=== PATIENT | female | born 1990 | race Caucasian/White ===

== ENCOUNTER 2021-01-05 18:19 | Inpatient (IN) ==
[~2021-01-05 18:19] MED LIST: ETOMIDATE 2 MG/ML 20 ML VIAL IV ONE; ROCURONIUM BROMIDE 10 MG/ML 5 ML VIAL IV ONE; SUCCINYLCHOLINE CHLORIDE 20 MG/ML 10 ML VIAL IV ONE
[2021-01-05] MEDS ORDERED: cefTRIAXone SODIUM 2,000 MG/70 ML BAG IV STA ×2 (18:37→18:41)
[2021-01-05] MEDS ORDERED: dexAMETHasone**PF** 10 MG/ML VIAL IV ONE ×2 (18:37→18:41)
[2021-01-05] MEDS ORDERED: ACETAMINOPHEN 1,000 MG/100 ML VIAL IV STA (18:37)
[2021-01-05] MEDS ORDERED: diphenhydrAMINE 50 MG/ML VIAL IV STA ×2 (18:38→18:41)
[2021-01-05] MEDS ORDERED: MAGNESIUM SULFATE / D5W 1 GM/100 ML BAG IV STA ×2 (18:38→18:42)
[2021-01-05] MEDS ORDERED: DROPERIDOL 5 MG/2 ML VIAL IV STA ×2 (18:38→18:41)
[2021-01-05] MEDS ORDERED: SODIUM CHLORIDE 0.9% 1000ML 1,000 ML IV ONE (18:41)
[2021-01-05] MEDS ORDERED: KETOROLAC TROMETHAMINE 15 MG/ML VIAL IV ONE (18:41)
[2021-01-05] MEDS ORDERED: VANCOMYCIN HCL 2,000 MG in SODIUM CHLORIDE 0.9% 500 ML IV ONE (18:50)
[2021-01-05] MEDS ORDERED: VANCOMYCIN CONSULT ACTIVE PRN (18:50)
[2021-01-05 19:59] LABS: Basophils # (auto) 0.06 K/uL (0-0.2); Basophils % (auto) 0.8 %; Eosinophils % (auto) 1.3 %; Hematocrit (blood only) 37.4 % (37-47); Hemoglobin 12.9 g/dL (12.0-16.0); Immature Granulocytes # (auto) 0.01 K/uL (0.00-0.02); Immature Granulocytes % (auto) 0.1 %; Lymphocytes # (auto) 1.54 K/uL (1.2-3.4); Lymphocytes % (auto) 19.9 %; Mean Corpuscular Hemoglobin 31.9 pg (25-34); Mean Corpuscular Hgb Conc 34.5 g/dL (32-36); Mean Corpuscular Volume 92.3 fL (80-100); Mean Platelet Volume 10.3 fL (7.4-10.4); Monocytes # (auto) 0.61 K/uL (0.11-0.59); Monocytes % (auto) 7.9 %; Platelet Count 247 K/uL (130-400); RDW Coefficient of Variation 12.3 % (11.5-14.5); RDW Standard Deviation 42.1 fL (36.4-46.3); Red Blood Count 4.05 M/uL (4.2-5.4); White Blood Count 7.72 K/uL (4.8-10.8)
[2021-01-05 20:12] LABS: BUN Creatinine Ratio 11.4 (10-20); Creatinine Clr Calc Pharmacy 136.2 ml/min; Est GFR (African American) 137.6 ml/min; Est GFR (Non-African American) 118.7 ml/min; Potassium 3.2 mmol/L (3.5-5.1)
[2021-01-05 20:15] LABS: Pregnancy Test, Serum Negative (Negative)
[2021-01-05] MEDS ORDERED: POTASSIUM CHLORIDE CRTAB 20 MEQ TABCR PO STA (20:19)
[2021-01-05 20:27] LABS: Bilirubin,Total 0.3 mg/dl (0.2-1)
[2021-01-05] MEDS ORDERED: ACETAMINOPHEN 325 MG TAB PO PRN (23:33)
[2021-01-05] MEDS ORDERED: PROMETHAZINE HCL 12.5 MG in SODIUM CHLORIDE 0.9% 50 ML IV PRN (23:33)
[2021-01-05] MEDS ORDERED: POTASSIUM CHLORIDE 40 MEQ in LACTATED RINGER'S 1,000 ML IV ONE (23:33)
[2021-01-06] MEDS: POTASSIUM CHLORIDE / WTR 10 MEQ/100 ML PLCT IV SCH ×2 (00:49→02:45)
[2021-01-06] MEDS: levETIRAcetam 500 MG TAB PO SCH ×3 (00:50→20:00)
[2021-01-06] MEDS: KETOROLAC TROMETHAMINE 15 MG/ML VIAL IV PRN ×3 (00:50→16:20)
--- NOTE | 2021-01-06 01:07 | History & Physical Report ---
Date of Service January 05, 2021 (late entry) Assessment & Plan (1) Cerebrospinal fluid abnormality: Plan: Gram-positive cocci on CSF (01/04) CSF analysis atypical for bacterial meningitis. Atypical presentation for possible meningitis. Patient currently not septic nor toxic. new onset seizures on Keppra HCV yet to be treated as per patient mood disorder, at baseline chronic pain on Subutex Hypokalemia ongoing tobacco abuse GMF CS, follow final CSF CS Vancomycin, Ceftriaxone ID consult once CSF CS results finalized. Outpatient GI referral for HCV. Patient interested in treatment Replace potassium Nicotine patch as needed DVT prophylaxis. Lovenox subcu Full code Text document was generated using [employer] voice recognition software. It may contain grammatical or spelling errors. Kindly contact undersigned for clarification of any documentation item in question. Admission and Anticipated Discharge Date Admission Date: January 05, 2021 History of Present Illness Chief Complaint: Abnormal lab work Primary Care Provider: [facility] Patient however would like to go back to seeing Dr. Katt Eli of [facility]. History obtained from patient and records. Medical history significant for new onset seizures, HCV, mood disorder, chronic pain on Subutex, ongoing tobacco abuse. 2 days ago patient had 3 episodes of generalized tonic-clonic seizures at home. No prior history of seizures as per patient. No known sick contacts. No cough symptoms, no rashes. No recollection of recent head trauma. Denies recreational drug use. Patient brought to the [facility] ER. Diagnostic LP recommended by neurologist on-call. Patient subsequently intubated because of increased agitation. Unremarkable preliminary CSF findings. Patient however given empiric doses of vancomycin, ceftriaxone and acyclovir for ADMINISTRATIVE SERVICES DIRECTOR infection. Behavioral Specialist recommended transfer to tertiary care center with continuous EEG monitoring capability. Patient transferred to [facility] as per patient family request. Patient sister employed at [facility] ICU as a nurse. Patient remembers waking up at [facility] and subsequent extubation. Brain MRI normal as per patient. Patient discharged home yesterday on Keppra course for seizure prophylaxis. Achy retro-orbital headache complaints since hospital discharge. No fever, no chills, no chest pain, no S OB. Gram-positive cocci noted today on CSF gram stain done post LP at [facility] 01/04. Result communicated to [facility]. Information relayed to patient sister who advised patient to go to the hospital. Patient given Vancomycin, Ceftriaxone and Decadron at the ER for meningitis. Medical History as above Surgical History : Dental surgery, femur surgery Family History : Heart disease, hypertension Personal/Social history : Few cigarettes a day, no EtOH intake, homemaker Allergies Allergy/AdvReac Type Severity Reaction Status Date / Time loratadine Allergy Unknown hives Verified 01/05/21 18:28 Home Medications Medication Instructions Recorded Confirmed Type buprenorphine 8 mg-naloxone 2 mg 1 tab SUBLINGUAL QAM 01/03/21 01/05/21 History sublingual tablet venlafaxine 150 mg 150 mg PO QAM 01/03/21 01/05/21 History capsule,extended release 24 hr (Effexor XR) levetiracetam 500 mg tablet 500 mg PO BID 01/05/21 01/05/21 History Past Med/Surg History Medical History Hepatitis C carrier (11/23/12) Social History Smoking Status: Current every day smoker Hx Alcohol Use: No Hx Substance Use: Yes Last Used Substance: Days (ago) Last Used Substance Other:: 15 yrs ago on suboxone now Preferred Language: Slovak Communication Ability: Effective Screw Machine Setter Required: No Beliefs That Will Affect Care: None Current Living Situation: Spouse Current Living Situation Comment: Lives with spouse and three boys Other Information That Helps Us Care for You: No Feels Safe at Home: Yes Safety Concerns: Feels Safe At This Time Assistive Devices: None Review of Systems Review of Systems: As per HPI, all 10 systems reviewed, all other ROS negative Physical Exam Physical Exam: GENERAL: Comfortable, pleasant, no respiratory distress SKIN: Normal color, multiple skin tattoos, warm HEENT: [place] palpebral conjunctivae, no ptosis, dry buccal mucosa NECK : Supple, no tenderness CHEST : CTA, no tenderness HEART : RRR, no obvious murmurs ABDOMEN: Some distention, nontender EXTREMITIES : No LE swelling/tenderness, no other conspicuous deformities noted NEUROLOGIC : Coherent, no facial asymmetry, no other gross focality Results & Data Results & Data ([facility]) Vital Signs (Past 12 Hours) Vital Signs Temp Pulse Pulse Resp BP BP Pulse Ox 01/05/21 23:36 37.4 C 96 H 18 144/94 H 100 01/05/21 22:53 87 16 132/85 100 01/05/21 21:30 75 16 147/68 H 96 01/05/21 20:35 75 16 132/92 95 01/05/21 19:37 77 18 132/92 99 01/05/21 18:22 37.2 C 101 H 20 141/92 H 99 Laboratory Results Laboratory Results WBC 7.72 K/uL (4.8-10.8) 01/05/21 19:18 RBC 4.05 M/uL (4.2-5.4) L 01/05/21 19:18 Hgb 12.9 g/dL (12.0-16.0) 01/05/21 19:18 Hct 37.4 % (37-47) 01/05/21 19:18 MCV 92.3 fL (80-100) 01/05/21 19:18 MCH 31.9 pg (25-34) 01/05/21 19:18 MCHC 34.5 g/dL (32-36) 01/05/21 19:18 RDW Std Deviation 42.1 fL (36.4-46.3) 01/05/21 19:18 RDW Coeff of Marilyn 12.3 % (11.5-14.5) 01/05/21 19:18 Plt Count 247 K/uL (130-400) 01/05/21 19:18 MPV 10.3 fL (7.4-10.4) 01/05/21 19:18 Immature Gran % (Auto) 0.1 % 01/05/21 19:18 Neut % (Auto) 70.0 % 01/05/21 19:18 Lymph % (Auto) 19.9 % 01/05/21 19:18 [place] % (Auto) 7.9 % 01/05/21 19:18 Eos % (Auto) 1.3 % 01/05/21 19:18 Baso % (Auto) 0.8 % 01/05/21 19:18 Neut # (Auto) 5.40 K/uL (1.4-6.5) 01/05/21 19:18 Lymph # (Auto) 1.54 K/uL (1.2-3.4) 01/05/21 19:18 [place] # (Auto) 0.61 K/uL (0.11-0.59) H 01/05/21 19:18 Eos # (Auto) 0.10 K/uL (0-0.5) 01/05/21 19:18 Baso # (Auto) 0.06 K/uL (0-0.2) 01/05/21 19:18 Immature Gran # (Auto) 0.01 K/uL (0.00-0.02) 01/05/21 19:18 Sodium 140 mmol/L (136-145) 01/05/21 19:18 Potassium 3.2 mmol/L (3.5-5.1) L 01/05/21 19:18 Chloride 105 mmol/L (98-107) 01/05/21 19:18 Carbon Dioxide 28 mmol/L (21-32) 01/05/21 19:18 Anion Gap 7.0 (3-11) 01/05/21 19:18 BUN 7 mg/dl (7-18) 01/05/21 19:18 Creatinine 0.63 mg/dl (0.6-1.2) 01/05/21 19:18 Est Cr Clr Drug Dosing 136.2 ml/min 01/05/21 19:18 Est GFR ( Amer) 137.6 ml/min 01/05/21 19:18 Est GFR (Non-Af Amer) 118.7 ml/min 01/05/21 19:18 BUN/Creatinine Ratio 11.4 (10-20) 01/05/21 19:18 Glucose 90 mg/dl (70-99) 01/05/21 19:18 Lactate 2.0 mmol/L (0.4-2.0) 01/05/21 21:12 Calcium 9.0 mg/dl (8.5-10.1) 01/05/21 19:18 Magnesium 2.0 mg/dl (1.8-2.4) 01/05/21 21:07 Total Bilirubin 0.3 mg/dl (0.2-1) 01/05/21 19:18 AST 71 U/L (15-37) H 01/05/21 19:18 ALT 70 U/L (12-78) 01/05/21 19:18 Alkaline Phosphatase 79 U/L (45-117) 01/05/21 19:18 Total Protein 8.0 gm/dl (6.4-8.2) 01/05/21 19:18 Albumin 4.0 gm/dl (3.4-5.0) 01/05/21 19:18 Globulin 4.0 gm/dl (2.5-4.0) 01/05/21 19:18 Albumin/Globulin Ratio 1.0 (0.9-2) 01/05/21 19:18 Lipase 137 U/L (73-393) 01/05/21 19:18 HCG, Qual Negative (Negative) 01/05/21 19:18 COVID-19 Eval Order Covid19 at [facility] 01/05/21 19:18 SARS-CoV-2 (PCR) NEGATIVE (Negative) 01/05/21 19:18 Code Status & VTE Plan VTE Prophylaxis Plan VTE Prophylaxis will be ordered: Yes
[2021-01-06] MEDS: cefTRIAXone SODIUM 2,000 MG in DEXTROSE 5% 50 ML IV SCH ×2 (05:59→19:17)
[2021-01-06 06:39] LABS: Appearance Urine Clear (Clear); Bilirubin Urine Negative (Negative); Blood Urine Negative (Negative); Color Urine Yellow; Glucose Urine UA 2+ (Negative); Ketones Urine Negative (Negative); Leukocyte Esterase Urine Negative (Negative); Nitrite Urine Negative (Negative); Protein Urine Negative (Negative); Specific Gravity Urine 1.027 (1.000-1.030); Urobilinogen Urine Negative (Negative); pH Urine 7.5 (4.5-7.5)
[2021-01-06 07:00] LABS: Amphetamines+Metham, Urine Neg (Neg); Barbiturates, Urine Neg (Neg); Benzodiazepine, Urine Neg (Neg); Cocaine, Urine Neg (Neg); MDMA (Ecstacy), Urine Neg (Neg); Methadone, Urine Neg (Neg); Opiate, Urine Neg (Neg); Phencyclidine, Urine Neg (Neg)
[2021-01-06 07:05] LABS: Basophils # (auto) 0.02 K/uL (0-0.2); Basophils % (auto) 0.2 %; Hemoglobin 12.1 g/dL (12.0-16.0); Immature Granulocytes # (auto) 0.02 K/uL (0.00-0.02); Immature Granulocytes % (auto) 0.2 %; Lymphocytes # (auto) 1.01 K/uL (1.2-3.4); Lymphocytes % (auto) 10.1 %; Mean Corpuscular Hemoglobin 31.8 pg (25-34); Mean Corpuscular Hgb Conc 34.6 g/dL (32-36); Mean Corpuscular Volume 91.9 fL (80-100); Monocytes # (auto) 0.85 K/uL (0.11-0.59); Monocytes % (auto) 8.5 %; Neutrophils # (auto) 8.09 K/uL (1.4-6.5); Platelet Count 219 K/uL (130-400); RDW Coefficient of Variation 12.4 % (11.5-14.5); RDW Standard Deviation 41.9 fL (36.4-46.3); Red Blood Count 3.81 M/uL (4.2-5.4); White Blood Count 9.99 K/uL (4.8-10.8)
[2021-01-06 07:47] LABS: BUN Creatinine Ratio 16.9 (10-20); Calcium 8.9 mg/dl (8.5-10.1); Creatinine Clr Calc Pharmacy 172.8 ml/min; Est GFR (African American) 148.4 ml/min; Est GFR (Non-African American) 128.1 ml/min; Potassium 4.1 mmol/L (3.5-5.1)
[2021-01-06] MEDS: VENLAFAXINE HCL XR 150 MG CAPXR PO SCH (08:40)
[2021-01-06] MEDS: VANCOMYCIN HCL 1,500 MG in SODIUM CHLORIDE 0.9% 500 ML IV SCH ×2 (08:40→20:00)
[2021-01-06] MEDS: ENOXAPARIN INJ 30 MG/0.3 ML SYR SQ SCH (08:41)
[2021-01-06] MEDS: BUPRENORPHINE/NALOXONE 8/2 MG TAB SL SCH (08:50)
--- NOTE | 2021-01-06 11:12 | Pharmacy Report ---
Pharmacy Vanc AUC Short Note - Date of Service January 06, 2021 - Assessment & Plan Assessment 30 year old F receiving Vancomycin and Ceftriaxone for treatment of meningitis * PMHx significant for smoking and hep c carrier * Recently had new onset seizures and was treated at hospital but now CSF cultures are growing GPCs * [facility] is consulted. Await their input. * Vancomycin and Ceftriaxone remain appropriate. Plan Vancomycin * AUC/JADYN is the preferred PK/PD target for vancomycin * AUC guided dosing is effective and associated with decreased risk of nephrotoxicity compared to traditional trough targets * Loading dose: 2000 mg (26 mg/kg) * Maintenance dose: 1500 mg (20 mg/kg) IV every 8 hours * Goal trough level: ~20 mcg/mL * Ordered a trough level for 01/07/21 prior to the 0800 dose Ceftriaxone - not a pharmacy consult * 2000 mg IV every 12 hours - appropriate for meningitis Pharmacy will continue to follow and will adjust dose/frequency as necessary. Thank you.
[2021-01-06] MEDS: IBUPROFEN 200 MG TAB PO PRN (20:04)
[2021-01-07] MEDS: VANCOMYCIN HCL 1,500 MG in SODIUM CHLORIDE 0.9% 500 ML IV SCH ×2 (02:54→12:22)
[2021-01-07] MEDS: cefTRIAXone SODIUM 2,000 MG in DEXTROSE 5% 50 ML IV SCH (05:51)
[2021-01-07] MEDS: IBUPROFEN 200 MG TAB PO PRN ×2 (06:17→16:11)
--- NOTE | 2021-01-07 06:53 | Hospitalist Progress Note ---
Date of Service January 06, 2021 Assessment & Plan (1) Cerebrospinal fluid abnormality: Plan: Gram-positive cocci on CSF (01/04) CSF analysis atypical for bacterial meningitis. Atypical presentation for possible meningitis. Patient currently not septic nor toxic. new onset seizures on Keppra HCV yet to be treated as per patient mood disorder, at baseline chronic pain on Subutex Hypokalemia ongoing tobacco abuse CS, follow final CSF CS Vancomycin, Ceftriaxone, MRSA Swab, d/w ID ID consult once CSF CS results finalized. Outpatient GI referral for HCV. Patient interested in treatment Replace potassium Nicotine patch as needed DVT prophylaxis. Lovenox subcu Full code Labs reviewed ROS-No Headache, No Visual Changes, No Nausea, No Vomiting, No Fever, No Chills, No Neck Pain or Stiffness, No Chest Pain, No Palpitations, No SOB, No RIGGINS, No Cough, No Sputum, No Wheezing, No Abdominal Pain, No Diarrhea, No Hematemesis, No Hemoptysis, No Unexpected Weight Loss, No Flank pain, No Melena, No Hematochezia, No Frequency, No Urgency, No Burning, No Hematuria, No Rashes, No Diaphoresis. Appetite is Normal Physical Exam Gen-AAO x 3, NAD, Afebrile Head-NCAT, EOMI, PERRLA, Anicteric Sclera, No Posterior Pharyngeal Erythema Neck-Supple, No JVD, No Thyromegaly, No Masses, No LAD, No Bruits Lungs-Clear to Auscultation Bilaterally, No Rales, No Rhonchi, No Wheezing, No Crepitus Chest-No S4, +S1, +S2, No S3, No Murmurs, No Rubs, No Gallops, No Ectopy Abdomen-Soft, Bowel Sounds Present, Non Tender, Non Distended, No Hepatomegaly, No Splenomegaly, No Palpable Masses, No Rebound, No Rigidity, No Guarding Musculoskeletal-Full Range of Motion Bilaterally, No CVAT Extremities-No Cyanosis, No Clubbing, No Edema Nuero-Cranial Nerves II-XII grossly intact, Motor WNL, DTRs WNL, Strength WNL, Non Focal Psych-Normal Mood Admission and Anticipated Discharge Date Admission Date: January 05, 2021 Results & Data Results & Data ([facility]) Vital Signs (Past 12 Hours) Vital Signs Temp Pulse Resp BP Pulse Ox 08/16/21 22:21 36.8 C 72 16 135/85 97
[2021-01-07] MEDS ORDERED: VANCOMYCIN TROUGH ONE ×2 (07:30→11:30)
[2021-01-07 08:32] LABS: Creatinine Clr Calc Pharmacy 151.6 ml/min; Est GFR (African American) 142.2 ml/min; Est GFR (Non-African American) 122.7 ml/min
[2021-01-07] MEDS: levETIRAcetam 500 MG TAB PO SCH ×2 (09:07→19:39)
[2021-01-07] MEDS: BUPRENORPHINE/NALOXONE 8/2 MG TAB SL SCH (09:07)
[2021-01-07] MEDS: VENLAFAXINE HCL XR 150 MG CAPXR PO SCH (09:07)
[2021-01-07] MEDS: ENOXAPARIN INJ 30 MG/0.3 ML SYR SQ SCH (09:07)
[2021-01-07] MEDS: KETOROLAC TROMETHAMINE 15 MG/ML VIAL IV PRN ×2 (09:08→19:31)
--- NOTE | 2021-01-07 10:35 | Hospitalist Progress Note ---
Date of Service January 07, 2021 Assessment & Plan (1) Bacterial meningitis: (2) Cerebrospinal fluid abnormality: Plan: Gram-positive cocci on CSF (01/04) CSF analysis atypical for bacterial meningitis. Suspected Bacterial Meningitis. Patient currently not septic nor toxic. new onset seizures on Keppra HCV yet to be treated as per patient mood disorder, at baseline chronic pain on Subutex Hypokalemia ongoing tobacco abuse CS, follow final CSF CS Vancomycin, Ceftriaxone, MRSA Swab, d/w ID ID consult pending, awaiting final Cx Outpatient GI referral for HCV. Patient interested in treatment Replace potassium Nicotine patch as needed DVT prophylaxis. Lovenox subcu Full code Labs reviewed ROS-Pos Headache, No Visual Changes, No Nausea, No Vomiting, No Fever, No Chills, No Neck Pain or Stiffness, No Chest Pain, No Palpitations, No SOB, No RIGGINS, No Cough, No Sputum, No Wheezing, No Abdominal Pain, No Diarrhea, No Hematemesis, No Hemoptysis, No Unexpected Weight Loss, No Flank pain, No Melena, No Hematochezia, No Frequency, No Urgency, No Burning, No Hematuria, No Rashes, No Diaphoresis. Appetite is Normal Physical Exam Gen-AAO x 3, NAD, Afebrile Head-NCAT, EOMI, PERRLA, Anicteric Sclera, No Posterior Pharyngeal Erythema Neck-Supple, No JVD, No Thyromegaly, No Masses, No LAD, No Bruits Lungs-Clear to Auscultation Bilaterally, No Rales, No Rhonchi, No Wheezing, No Crepitus Chest-No S4, +S1, +S2, No S3, No Murmurs, No Rubs, No Gallops, No Ectopy Abdomen-Soft, Bowel Sounds Present, Non Tender, Non Distended, No Hepatomegaly, No Splenomegaly, No Palpable Masses, No Rebound, No Rigidity, No Guarding Musculoskeletal-Full Range of Motion Bilaterally, No CVAT Extremities-No Cyanosis, No Clubbing, No Edema Nuero-Cranial Nerves II-XII grossly intact, Motor WNL, DTRs WNL, Strength WNL, Non Focal Psych-Normal Mood Admission and Anticipated Discharge Date Admission Date: January 05, 2021 Results & Data Results & Data ([facility]) Vital Signs (Past 12 Hours) Vital Signs Temp Pulse Resp BP Pulse Ox 01/07/21 07:47 36.6 C 75 18 141/94 H 98
--- NOTE | 2021-01-07 14:16 | Pharmacy Report ---
Pharmacy Abx Dose Short Note - Date of Service January 07, 2021 - Assessment & Plan Assessment 30 year old F receiving vancomycin and rocephin for possible meningitis Day # 3 of antimicrobial therapy. Plan Vancomycin * Trough level came back at ~14.3 mg/ml (goal 15-20 mcg/ml for meningitis). Previous doses of vancomycin delayed due to line issues/access. First dose of maintenance dose was 7 hrs late due to IV access. Anticipate level will increase with dosing. * Plan to continue same vancomycin dosing for now and recheck level tomorrow AM * Patient's CSF culture with staph epidermidis. Prelim blood cultures with no growth Pharmacy will continue to follow and will adjust dose/frequency as necessary. Thank you.
[2021-01-07] MEDS: NAFCILLIN SODIUM 2,000 MG in DEXTROSE 5% 100 ML IV SCH ×2 (16:03→19:39)
[2021-01-08] MEDS: NAFCILLIN SODIUM 2,000 MG in DEXTROSE 5% 100 ML IV SCH ×4 (00:23→12:03)
[2021-01-08] MEDS: KETOROLAC TROMETHAMINE 15 MG/ML VIAL IV PRN ×2 (05:12→11:17)
[2021-01-08 06:26] LABS: Basophils # (auto) 0.04 K/uL (0-0.2); Basophils % (auto) 0.7 %; Eosinophils # (auto) 0.16 K/uL (0-0.5); Eosinophils % (auto) 2.9 %; Hematocrit (blood only) 34.7 % (37-47); Hemoglobin 11.9 g/dL (12.0-16.0); Immature Granulocytes # (auto) 0.02 K/uL (0.00-0.02); Immature Granulocytes % (auto) 0.4 %; Lymphocytes # (auto) 1.51 K/uL (1.2-3.4); Lymphocytes % (auto) 27.4 %; Mean Corpuscular Hgb Conc 34.3 g/dL (32-36); Mean Corpuscular Volume 93.3 fL (80-100); Monocytes # (auto) 0.56 K/uL (0.11-0.59); Monocytes % (auto) 10.2 %; Neutrophils # (auto) 3.22 K/uL (1.4-6.5); Neutrophils % (auto) 58.4 %; Platelet Count 280 K/uL (130-400); RDW Coefficient of Variation 12.5 % (11.5-14.5); RDW Standard Deviation 42.6 fL (36.4-46.3); Red Blood Count 3.72 M/uL (4.2-5.4); White Blood Count 5.51 K/uL (4.8-10.8)
[2021-01-08 06:49] LABS: BUN Creatinine Ratio 10.5 (10-20); Calcium 8.6 mg/dl (8.5-10.1); Creatinine Clr Calc Pharmacy 139.3 ml/min; Est GFR (African American) 138.3 ml/min; Est GFR (Non-African American) 119.3 ml/min
[2021-01-08] MEDS: ENOXAPARIN INJ 30 MG/0.3 ML SYR SQ SCH (08:48)
[2021-01-08 08:51] LABS: Marijuana Quant, GCMS Urine 1165 ng/mL (<5)
[2021-01-08] MEDS: VENLAFAXINE HCL XR 150 MG CAPXR PO SCH (09:07)
[2021-01-08] MEDS: IBUPROFEN 200 MG TAB PO PRN (09:07)
[2021-01-08] MEDS: BUPRENORPHINE/NALOXONE 8/2 MG TAB SL SCH (09:08)
[2021-01-08] MEDS: levETIRAcetam 500 MG TAB PO SCH ×2 (09:30→16:41)
--- NOTE | 2021-01-08 14:49 | Hospitalist Progress Note ---
Date of Service January 08, 2021 Assessment & Plan (1) Bacterial meningitis: (2) Cerebrospinal fluid abnormality: Plan: Patient initially presented to [facility] ED on January 03, with several episodes of seizure. Required Ativan, and Keppra, then was intubated and after further discussion with ICU physician and neurologist, patient was transferred to [facility] for 24-hour EEG monitoring. Patient was discharged from [facility] shortly after that however CSF culture came positive for gram-positive cocci here at [facility]. Patient was contacted and also physician at [facility] was contacted. Patient then presented on January 06 for admission at [facility]. She was discharged from [facility] on Keppra. Gram-positive cocci on CSF (01/04)-Staph epidermidis CSF analysis atypical for bacterial meningitis. Suspected Bacterial Meningitis. Blood culture negative from January 05 Patient currently not septic nor toxic. Vancomycin, Ceftriaxone, MRSA Swab Then switched to nafcillin on January 07 ID consulted CSF - WBC 2, RBC 0, Glucose 66, protein 34 No WBC seen. No organisms seen, grew rare staph epidermidis meningitis ruled out Staph epi in her CSF does not match the profile, so must be assessed as a contam inant and not part etiology of infection Stop antibiotics Medical records not available currently to me from [facility], however records requested and will be forwarded to primary care physician when available Patient reports she has a prescription for overnight EEG, (however no referral to see a neurologist?) Atul also contacted about seizure and no driving for 6 months New onset seizures now on Keppra (after DC from [facility]) Patient recently increased dose for venlafaxine, which can increase seizure threshold Recommend to lower venlafaxine to 75 mg daily then after a week, can stop or discuss further primary care physician PCP follow-up arranged for January 13 May need further follow-up with neurology, as above HCV yet to be treated as per patient Outpatient GI referral for HCV. Patient interested in treatment Mood disorder, at baseline On venlafaxine, recommend to decrease dose to 75 mg daily for 1 week, as above as it may be contributing/causing patient's seizure Chronic pain on Subutex Hypokalemia Replace potassium Ongoing tobacco abuse Nicotine patch as needed DVT prophylaxis. Lovenox subcu Full code Admission and Anticipated Discharge Date Admission Date: January 05, 2021 Subjective Pt seen in follow-up for seizure, abnormal CSF cultx, concern for bacterial meningitis Patient is currently sitting up in bed, in no acute distress No fevers, chills, chest pain, shortness of breath No abdominal pain, no nausea or vomiting Seen by ID today, via telemedicine, meningitis ruled out, and okay to stop IV antibiotics Review of Systems Review of Systems: All systems reviewed & are unremarkable except as noted in Subjective Physical Exam Physical Exam: Gen- AAO x 3, NAD, Afebrile Head- NCAT, EOMI, PERRLA, Anicteric Sclera Neck- Supple, No JVD Lungs- Clear to Auscultation Bilaterally, No Rales, No Rhonchi, No Wheezing Chest- +S1, +S2, No S3, No Murmurs Abdomen- Soft, Bowel Sounds Present, Non Tender, Non Distended Musculoskeletal- Full Range of Motion B/l, No CVAT Extremities- No Cyanosis, No Clubbing, No Edema Neuro-alert and oriented x3, no facial asymmetry, speech fluent, answering questions appropriately, moving extremities spontaneously and without difficulty Psych- Normal Mood Results & Data Results & Data ([facility]) Vital Signs (Past 12 Hours) Vital Signs Temp Pulse Resp BP Pulse Ox 01/08/21 09:30 36.5 C 77 16 122/79 99 Laboratory Results 01/08/21 01/08/21 01/08/21 Range/Units 06:58 06:05 06:05 WBC 5.51 (4.8-10.8) K/uL RBC 3.72 L (4.2-5.4) M/uL Hgb 11.9 L (12.0-16.0) g/dL Hct 34.7 L (37-47) % MCV 93.3 (80-100) fL MCH 32.0 (25-34) pg MCHC 34.3 (32-36) g/dL RDW Std Deviation 42.6 (36.4-46.3) fL RDW Coeff of Marilyn 12.5 (11.5-14.5) % Plt Count 280 (130-400) K/uL MPV 11.0 H (7.4-10.4) fL Immature Gran % (Auto) 0.4 % Neut % (Auto) 58.4 % Lymph % (Auto) 27.4 % [place] % (Auto) 10.2 % Eos % (Auto) 2.9 % Baso % (Auto) 0.7 % Neut # (Auto) 3.22 (1.4-6.5) K/uL Lymph # (Auto) 1.51 (1.2-3.4) K/uL [place] # (Auto) 0.56 (0.11-0.59) K/uL Eos # (Auto) 0.16 (0-0.5) K/uL Baso # (Auto) 0.04 (0-0.2) K/uL Immature Gran # (Auto) 0.02 (0.00-0.02) K/uL Sodium 137 (136-145) mmol/L Potassium 3.6 (3.5-5.1) mmol/L Chloride 106 (98-107) mmol/L Carbon Dioxide 32 (21-32) mmol/L Anion Gap -1.0 L (3-11) BUN 6 L (7-18) mg/dl Creatinine 0.62 (0.6-1.2) mg/dl Est Cr Clr Drug Dosing 139.3 ml/min Est GFR ( Amer) 138.3 ml/min Est GFR (Non-Af Amer) 119.3 ml/min BUN/Creatinine Ratio 10.5 (10-20) Glucose 88 (70-99) mg/dl Calcium 8.6 (8.5-10.1) mg/dl U Marijuana THC Carboxy (<5) ng/mL Drug Screen Comment 01/06/21 Range/Units 06:00 WBC (4.8-10.8) K/uL RBC (4.2-5.4) M/uL Hgb (12.0-16.0) g/dL Hct (37-47) % MCV (80-100) fL MCH (25-34) pg MCHC (32-36) g/dL RDW Std Deviation (36.4-46.3) fL RDW Coeff of Marilyn (11.5-14.5) % Plt Count (130-400) K/uL MPV (7.4-10.4) fL Immature Gran % (Auto) % Neut % (Auto) % Lymph % (Auto) % [place] % (Auto) % Eos % (Auto) % Baso % (Auto) % Neut # (Auto) (1.4-6.5) K/uL Lymph # (Auto) (1.2-3.4) K/uL [place] # (Auto) (0.11-0.59) K/uL Eos # (Auto) (0-0.5) K/uL Baso # (Auto) (0-0.2) K/uL Immature Gran # (Auto) (0.00-0.02) K/uL Sodium (136-145) mmol/L Potassium (3.5-5.1) mmol/L Chloride (98-107) mmol/L Carbon Dioxide (21-32) mmol/L Anion Gap (3-11) BUN (7-18) mg/dl Creatinine (0.6-1.2) mg/dl Est Cr Clr Drug Dosing ml/min Est GFR ( Amer) ml/min Est GFR (Non-Af Amer) ml/min BUN/Creatinine Ratio (10-20) Glucose (70-99) mg/dl Calcium (8.5-10.1) mg/dl U Marijuana THC Carboxy 1165 H (<5) ng/mL Drug Screen Comment SEE NOTE Medications Administered Current Inpatient Medications Acetaminophen (Acetaminophen 325 Mg Tab) 650 mg PO Q4H PRN PRN Reason: pain/fever Stop: 02/04/21 23:32 Last Admin: 01/07/21 17:16 Dose: 650 mg Documented by: Buprenorphine/Naloxone (Buprenorphine/Naloxone 8/2 Mg Tab) 1 tab SL [facility] Stop: 02/05/21 08:59 Last Admin: 01/08/21 09:08 Dose: 1 tab Documented by: Enoxaparin Sodium (Enoxaparin Inj 30 Mg/0.3 Ml Syr) 30 mg SQ [facility] Stop: 02/05/21 08:59 Last Admin: 01/08/21 08:48 Dose: Not Given Documented by: Promethazine HCl 12.5 mg/ (Sodium Chloride) 50.5 mls @ 202 mls/hr IV Q6H PRN PRN Reason: Nausea And Vomiting Stop: 02/04/21 23:32 Nafcillin Sodium 2,000 mg/ (Dextrose) 108 mls @ 100 mls/hr IV Q4 [facility]; Protocol Stop: 01/17/21 15:59 Last Infusion: 01/08/21 13:09 Dose: Infused Documented by: Ibuprofen (Ibuprofen 200 Mg Tab) 200 mg PO Q6H PRN PRN Reason: Mild Pain Stop: 02/04/21 23:32 Last Admin: 01/08/21 09:07 Dose: 200 mg Documented by: Ketorolac Tromethamine (Ketorolac Tromethamine 15 Mg/Ml Vial) 15 mg IV Q6H PRN PRN Reason: Pain Stop: 01/10/21 23:32 Last Admin: 01/08/21 11:17 Dose: 15 mg Documented by: Levetiracetam (Levetiracetam 500 Mg Tab) 500 mg PO BID [facility] Stop: 02/04/21 23:32 Last Admin: 01/08/21 09:30 Dose: 500 mg Documented by: Venlafaxine HCl (Venlafaxine Hcl Xr 150 Mg Capxr) 150 mg PO QAM [facility] Stop: 02/05/21 08:59 Last Admin: 01/08/21 09:07 Dose: 150 mg Documented by:
--- NOTE | 2021-01-08 15:50 | Discharge Summary ---
Date of Service January 08, 2021 Admission HPI Per Admitting Provider History obtained from patient and records. Medical history significant for new onset seizures, HCV, mood disorder, chronic pain on Subutex, ongoing tobacco abuse. 2 days ago patient had 3 episodes of generalized tonic-clonic seizures at home. No prior history of seizures as per patient. No known sick contacts. No cough symptoms, no rashes. No recollection of recent head trauma. Denies recreational drug use. Patient brought to the [facility] ER. Diagnostic LP recommended by neurologist on-call. Patient subsequently intubated because of increased agitation. Unremarkable preliminary CSF findings. Patient however given empiric doses of vancomycin, ceftriaxone and acyclovir for G[employer] infection. Segmental Wall Installer recommended transfer to tertiary care center with continuous EEG monitoring capability. Patient transferred to [facility] as per patient family request. Patient sister employed at [facility] ICU as a nurse. Patient remembers waking up at [facility] and subsequent extubation. Brain MRI normal as per patient. Patient discharged home yesterday on Keppra course for seizure prophylaxis. Achy retro-orbital headache complaints since hospital discharge. No fever, no chills, no chest pain, no S OB. Gram-positive cocci noted today on CSF gram stain done post LP at [facility] 01/04. Result communicated to [facility]. Information relayed to patient sister who advised patient to go to the hospital. Patient given Vancomycin, Ceftriaxone and Decadron at the ER for meningitis. Medical History as above Surgical History : Dental surgery, femur surgery Family History : Heart disease, hypertension Personal/Social history : Few cigarettes a day, no EtOH intake, homemaker Admission Exam Per Admitting Provider GENERAL: Comfortable, pleasant, no respiratory distress SKIN: Normal color, multiple skin tattoos, warm HEENT: [place] palpebral conjunctivae, no ptosis, dry buccal mucosa NECK : Supple, no tenderness CHEST : CTA, no tenderness HEART : RRR, no obvious murmurs ABDOMEN: Some distention, nontender EXTREMITIES : No LE swelling/tenderness, no other conspicuous deformities noted NEUROLOGIC : Coherent, no facial asymmetry, no other gross focality Principal Diagnosis Seizure, concern for possible bacterial meningitis Meningitis was ruled out Discharge Exam Gen- AAO x 3, NAD, Afebrile Head- NCAT, EOMI, PERRLA, Anicteric Sclera Neck- Supple, No JVD Lungs- Clear to Auscultation Bilaterally, No Rales, No Rhonchi, No Wheezing Chest- +S1, +S2, No S3, No Murmurs Abdomen- Soft, Bowel Sounds Present, Non Tender, Non Distended Musculoskeletal- Full Range of Motion B/l, No CVAT Extremities- No Cyanosis, No Clubbing, No Edema Neuro-alert and oriented x3, no facial asymmetry, speech fluent, answering questions appropriately, moving extremities spontaneously and without difficulty Psych- Normal Mood Discharge Data Allergies Allergy/AdvReac Type Severity Reaction Status Date / Time loratadine Allergy Unknown hives Verified 01/05/21 18:28 Consultations 01/05/21 20:18 ED Decision to Admit Stat 01/06/21 09:56 Consult Infectious Diseases Routine Hospital Course (1) Bacterial meningitis: (2) Cerebrospinal fluid abnormality: Patient initially presented to [facility] ED on January 03, with several episodes of seizure. Required Ativan, and Keppra, then was intubated and after further discussion with ICU physician and neurologist, patient was transferred to [facility] for 24-hour EEG monitoring. Patient was discharged from [facility] shortly after that however CSF culture came positive for gram-positive cocci here at [facility]. Patient was contacted and also physician at [facility] was contacted. Patient then presented on January 06 for admission at [facility]. She was discharged from [facility] on Keppra. Gram-positive cocci on CSF (01/04)-Staph epidermidis CSF analysis atypical for bacterial meningitis. Suspected Bacterial Meningitis. Blood culture negative from January 05 Patient currently not septic nor toxic. Vancomycin, Ceftriaxone, MRSA Swab Then switched to nafcillin on January 07 ID consulted CSF - WBC 2, RBC 0, Glucose 66, protein 34 No WBC seen. No organisms seen, grew rare staph epidermidis meningitis ruled out Staph epi in her CSF does not match the profile, so must be assessed as a contaminant and not part etiology of infection Stop antibiotics Medical records not available currently to me from [facility], however records requested and will be forwarded to primary care physician when available Patient reports she has a prescription for overnight EEG, (however no referral to see a neurologist?) Atul also contacted about seizure and no driving for 6 months New onset seizures now on Keppra (after DC from [facility]) Patient recently increased dose for venlafaxine, which can increase seizure threshold Recommend to lower venlafaxine to 75 mg daily then after a week, can stop or discuss further primary care physician PCP follow-up arranged for January 13 May need further follow-up with neurology, as above HCV yet to be treated as per patient Outpatient GI referral for HCV. Patient interested in treatment Mood disorder, at baseline On venlafaxine, recommend to decrease dose to 75 mg daily for 1 week, as above as it may be contributing/causing patient's seizure Chronic pain on Subutex Hypokalemia Replace potassium Ongoing tobacco abuse Nicotine patch as needed DVT prophylaxis. Lovenox subcu Full code Total Time Total Time Spent Total Time Spent (In Minutes): 40 Discharge Plan Discharge Items Patient Disposition: Home - Self-Care Reason For Visit: BACTERIAL MENINGITIS Discharge Diagnosis: Seizure, concern for possible bacterial meningitis Meningitis was ruled out Activity: Per Instructions section Activity Comment: You should not be driving a vehicle for at least 6 months Non-emergency contact: Primary Care Provider and Neurologist Call non-emergency contact if: you have any medication questions and your symptoms worsen Follow-up/Referrals: Bjorn Estrella DO [Outside Practitioners] - 01/13/21 12:00 pm (Date & Time 01/13/2021 12:00 PM Provider Bjorn Estrella DO Department [facility] ) Diet: Regular Addtl Attending Provider Instructions: Follow-up with your primary care doctor, the appointment was scheduled for you for January 13. Bacterial meningitis was ruled out. Seizure may have been secondary to increased dose of venlafaxine. Please decr ease your dose of venlafaxine to 75 mg daily for next week. Discuss further with your primary care doctor if you should stop this medication after that. You may have to see a neurologist as well. You should not be driving a vehicle for 6 months. We are in the process of obtaining medical records from [facility] so your healthcare providers can appropriately follow-up on your care. Pending Studies at Discharge: No Stand-Alone Forms: My [employer], Smoking Cessation Medications and DC Order Prescriptions: Continued buprenorphine-naloxone 8-2 mg tablet, sublingual 1 tab SUBLINGUAL QAM RF: 0 levetiracetam 500 mg tablet 500 mg PO BID RF: 0 Changed venlafaxine [Effexor XR] 150 mg capsule,extended release 24hr 75 mg PO QAM Qty: 0 RF: 0 Discharge Orders: Discharge Order (Routine); Ordered 01/08/21 Ordered By: Adonay Acuña Admission Data Admit Date/Time: 01/05/21 22:20 Attending Provider: Adonay Acuña Admit Provider: Maxim De Souza Primary Care Provider: Katt Eli Other Providers: Maxim De Souza ; Jean Lagos ; Shanna Arciniega ; Amrit Draper I. ; Jack Miguel II ; Carol Chavarria ; Collin Gomez ; [facility]
--- NOTE | 2021-01-11 10:58 | Emergency Department Note ---
Impression & Plan Cerebrospinal fluid abnormality, Headache ED Provider Note NAME: VALENTINA BELL AGE: 30 SEX: F : 1990 ARRIVES VIA: Walk-In INFORMANT: Patient, ED PROVIDER(S): Jaleel Molina MD CHIEF COMPLAINT: headache HPI: Records review reveals this patient was here on Wednesday for status epilepticus and was subsequently transferred to [place]. This is a 30-year-old female who presents back to the emergency department complaining of headache. The patient was recently transferred to [place] for status epilepticus. She was intubated. The patient does not remember any details from this. The patient had a lumbar puncture performed here in the emergency department. The patient did not have a large amount of white blood cells in the lumbar puncture however there is concerned that the patient grew out bacteria in her bacterial culture. For this reason [place] was called who called the patient who sent the patient back to the emergency department. Upon arrival to the emergency department the patient is complaining of an aching sensation to her head. She reports nothing appears to make the pain any better or worse. She has not taken anything for the pain prior to arrival. The patient had been placed on Keppra by [place]. ROS: See above HPI for pertinent positives & negatives. A total of 10 systems reviewed and were otherwise negative. PAST MEDICAL HISTORY: See Below PAST SURGICAL HISTORY: See Below FAMILY HISTORY: See Below SOCIAL HISTORY: See Below HOME MEDICATIONS: See Below ALLERGIES: See Below VITALS: See Below PHYSICAL EXAMINATION: VITAL SIGNS - Vital signs and nursing notes were reviewed. GENERAL - 30-year-old female appearing stated age who is in no acute distress. Communicates well with provider and answers questions appropriately. SKIN - Without rashes. HEAD - NC/AT. EYES - PERRL with EOMI bilaterally. Sclera anicteric. Palpebral conjunctiva pi nk and moist with no injection noted. EARS - No deformities of external structures noted on gross examination bilaterally. NOSE - Midline and without cyanosis. No epistaxis or purulent drainage noted. Septum midline without deviation or septal hematoma noted. MOUTH/OROPHARYNX - Without perioral cyanosis. Buccal mucosa pink and moist and without leukoplakia. Tongue midline with equal elevation of palate bilaterally. No tonsillar hypertrophy, erythema, or exudates noted. NECK - Neck with FROM. Supple to palpation. LUNGS - Chest wall symmetric without accessory muscle use, intercostals re tractions, or central cyanosis. Normal vesicular breath sounds CTA B/L. No wheezes, rales, or rhonchi appreciated. CARDIAC - RRR with S1/S2. No murmur, rubs, or gallops appreciated. ABDOMEN - Abdominal contour without pulsations or visible masses. BS normoactive all four quadrants. No tenderness, palpable masses, hepatosplenomegaly, or ascites noted. EXTREMITIES - No clubbing or peripheral cyanosis. No pretibial edema present. +3/5 radial, posterior tibial, and dorsalis pedis pulses palpated throughout. +5/5 strength noted in UE/LE bilaterally. NEUROLOGIC - Cranial nerves II through XII grossly intact. Sensory intact to light touch throughout. Patellar reflexes +2/4. PSYCH - A&Ox3 and cooperates fully with examiner. Pt is very pleasant and interacts well with examiner. MEDICAL DECISION MAKING: Patient was seen and evaluated as above in room B4. Review was performed of nursing notes and vital signs. I did review pertinent previous visits and patient history. After obtaining a thorough history and physical examination the above work up was performed. This is a 30-year-old female who presents emergency department complaining of headache. The patient does not have an elevation in her white blood cell count. I did discuss this case with pharmacy who recommended the patient receive IV antibiotics including Decadron Rocephin as well as vancomycin. Based on this I did discuss the case with the hospitalist service who did agree to meet the patient. Patient is in agreement with the treatment plan. While in the department, I personally reevaluated the patient several times and each time the patient was found to be resting comfortably. The patient was educated upon management, educated upon todays findings/results, educated upon importance of follow up from today's visit, educated upon symptoms in which to return, had questions answered prior to discharge, verbalized understanding, and was discharged home in good condition. An order was placed for continuous cardiac monitoring. The monitor shows a rate of 77 with Normal Sinus rhythm. The patient was evaluated during a period of high volume and high acuity during the global COVID-19 pandemic, and that diagnosis was suspected/considered upon their initial presentation. Their evaluation, treatment and testing was consistent with current guidelines for patients who present with complaints or symptoms that may be related to COVID-19. Patient was seen while provider was wearing PPE. Triage Nursing notes reviewed. Prior medical records reviewed Vital Signs: reviewed and remarkable for no significant abnormalities Differential diagnosis: Migraine headache, meningitis, sinusitis, CO exposure, ICH, SAH, infection, tumor, headache, sinus thrombosis, arterial dissection, as well as other pat hologies. ER treatment provided: See below Laboratory studies: As stated above and show below. 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 Beliefs That Will Affect Care: None Current Living Situation: Spouse Current Living Situation Comment: Lives with spouse and three boys Other Information That Helps Us Care for You: No Feels Safe at Home: Yes Safety Concerns: Feels Safe At This Time Assistive Devices: None Allergies Allergies Allergy/AdvReac Type Severity Reaction Status Date / Time loratadine Allergy Unknown hives Verified 01/05/21 18:28 Home Meds Home Medications Medication Instructions Recorded Confirmed buprenorphine 8 mg-naloxone 2 mg 1 tab SUBLINGUAL QAM 01/03/21 01/05/21 sublingual tablet levetiracetam 500 mg tablet 500 mg PO BID 01/05/21 01/05/21 Previous Rx's Medication Instructions Recorded venlafaxine 150 mg 75 mg PO QAM #0 cap 01/08/21 capsule,extended release 24 hr (Effexor XR) venlafaxine 75 mg capsule,extended 75 mg PO DAILY #7 cap 01/08/21 release 24 hr Results & Data (ED) Home Medications Current Medication List: was personally reviewed by me Laboratory Data Attestation: I reviewed the patient's lab results. Result diagrams: 01/08/21 06:05 01/08/21 06:58 Lab Results 01/05/21 01/05/21 01/05/21 Range/Units 19:18 19:18 19:18 WBC 7.72 (4.8-10.8) K/uL RBC 4.05 L (4.2-5.4) M/uL Hgb 12.9 (12.0-16.0) g/dL Hct 37.4 (37-47) % MCV 92.3 (80-100) fL MCH 31.9 (25-34) pg MCHC 34.5 (32-36) g/dL RDW Std Deviation 42.1 (36.4-46.3) fL RDW Coeff of Marilyn 12.3 (11.5-14.5) % Plt Count 247 (130-400) K/uL MPV 10.3 (7.4-10.4) fL Immature Gran % (Auto) 0.1 % Neut % (Auto) 70.0 % Lymph % (Auto) 19.9 % Bullitt % (Auto) 7.9 % Eos % (Auto) 1.3 % Baso % (Auto) 0.8 % Neut # (Auto) 5.40 (1.4-6.5) K/uL Lymph # (Auto) 1.54 (1.2-3.4) K/uL Bullitt # (Auto) 0.61 H (0.11-0.59) K/uL Eos # (Auto) 0.10 (0-0.5) K/uL Baso # (Auto) 0.06 (0-0.2) K/uL Immature Gran # (Auto) 0.01 (0.00-0.02) K/uL Sodium 140 (136-145) mmol/L Potassium 3.2 L (3.5-5.1) mmol/L Chloride 105 (98-107) mmol/L Carbon Dioxide 28 (21-32) mmol/L Anion Gap 7.0 (3-11) BUN 7 (7-18) mg/dl Creatinine 0.63 (0.6-1.2) mg/dl Est Cr Clr Drug Dosing 136.2 ml/min Est GFR ( Amer) 137.6 ml/min Est GFR (Non-Af Amer) 118.7 ml/min BUN/Creatinine Ratio 11.4 (10-20) Glucose 90 (70-99) mg/dl Lactate (0.4-2.0) mmol/L Calcium 9.0 (8.5-10.1) mg/dl Magnesium (1.8-2.4) mg/dl Total Bilirubin 0.3 (0.2-1) mg/dl AST 71 H (15-37) U/L ALT 70 (12-78) U/L Alkaline Phosphatase 79 (45-117) U/L Total Protein 8.0 (6.4-8.2) gm/dl Albumin 4.0 (3.4-5.0) gm/dl Globulin 4.0 (2.5-4.0) gm/dl Albumin/Globulin Ratio 1.0 (0.9-2) Lipase 137 (73-393) U/L HCG, Qual (Negative) Levetiracetam 6.8 L (12.0-46.0) mcg/mL COVID-19 Eval Order SARS-CoV-2 (PCR) (Negative) 01/05/21 01/05/21 01/05/21 Range/Units 19:18 19:18 19:18 WBC (4.8-10.8) K/uL RBC (4.2-5.4) M/uL Hgb (12.0-16.0) g/dL Hct (37-47) % MCV (80-100) fL MCH (25-34) pg MCHC (32-36) g/dL RDW Std Deviation (36.4-46.3) fL RDW Coeff of Marilyn (11.5-14.5) % Plt Count (130-400) K/uL MPV (7.4-10.4) fL Immature Gran % (Auto) % Neut % (Auto) % Lymph % (Auto) % Bullitt % (Auto) % Eos % (Auto) % Baso % (Auto) % Neut # (Auto) (1.4-6.5) K/uL Lymph # (Auto) (1.2-3.4) K/uL Bullitt # (Auto) (0.11-0.59) K/uL Eos # (Auto) (0-0.5) K/uL Baso # (Auto) (0-0.2) K/uL Immature Gran # (Auto) (0.00-0.02) K/uL Sodium (136-145) mmol/L Potassium (3.5-5.1) mmol/L Chloride (98-107) mmol/L Carbon Dioxide (21-32) mmol/L Anion Gap (3-11) BUN (7-18) mg/dl Creatinine (0.6-1.2) mg/dl Est Cr Clr Drug Dosing ml/min Est GFR ( Amer) ml/min Est GFR (Non-Af Amer) ml/min BUN/Creatinine Ratio (10-20) Glucose (70-99) mg/dl Lactate (0.4-2.0) mmol/L Calcium (8.5-10.1) mg/dl Magnesium (1.8-2.4) mg/dl Total Bilirubin (0.2-1) mg/dl AST (15-37) U/L ALT (12-78) U/L Alkaline Phosphatase (45-117) U/L Total Protein (6.4-8.2) gm/dl Albumin (3.4-5.0) gm/dl Globulin (2.5-4.0) gm/dl Albumin/Globulin Ratio (0.9-2) Lipase (73-393) U/L HCG, Qual Negative (Negative) Levetiracetam (12.0-46.0) mcg/mL COVID-19 Eval Order Covid19 at [facility] SARS-CoV-2 (PCR) NEGATIVE (Negative) 01/05/21 01/05/21 Range/Units 21:07 21:12 WBC (4.8-10.8) K/uL RBC (4.2-5.4) M/uL Hgb (12.0-16.0) g/dL Hct (37-47) % MCV (80-100) fL MCH (25-34) pg MCHC (32-36) g/dL RDW Std Deviation (36.4-46.3) fL RDW Coeff of Marilyn (11.5-14.5) % Plt Count (130-400) K/uL MPV (7.4-10.4) fL Immature Gran % (Auto) % Neut % (Auto) % Lymph % (Auto) % Bullitt % (Auto) % Eos % (Auto) % Baso % (Auto) % Neut # (Auto) (1.4-6.5) K/uL Lymph # (Auto) (1.2-3.4) K/uL Bullitt # (Auto) (0.11-0.59) K/uL Eos # (Auto) (0-0.5) K/uL Baso # (Auto) (0-0.2) K/uL Immature Gran # (Auto) (0.00-0.02) K/uL Sodium (136-145) mmol/L Potassium (3.5-5.1) mmol/L Chloride (98-107) mmol/L Carbon Dioxide (21-32) mmol/L Anion Gap (3-11) BUN (7-18) mg/dl Creatinine (0.6-1.2) mg/dl Est Cr Clr Drug Dosing ml/min Est GFR ( Amer) ml/min Est GFR (Non-Af Amer) ml/min BUN/Creatinine Ratio (10-20) Glucose (70-99) mg/dl Lactate 2.0 (0.4-2.0) mmol/L Calcium (8.5-10.1) mg/dl Magnesium 2.0 (1.8-2.4) mg/dl Total Bilirubin (0.2-1) mg/dl AST (15-37) U/L ALT (12-78) U/L Alkaline Phosphatase (45-117) U/L Total Protein (6.4-8.2) gm/dl Albumin (3.4-5.0) gm/dl Globulin (2.5-4.0) gm/dl Albumin/Globulin Ratio (0.9-2) Lipase (73-393) U/L HCG, Qual (Negative) Levetiracetam (12.0-46.0) mcg/mL COVID-19 Eval Order SARS-CoV-2 (PCR) (Negative) Administered Medications Discontinued Medications Acetaminophen (Acetaminophen 325 Mg Tab) 650 mg PO Q4H PRN PRN Reason: pain/fever Stop: 02/04/21 23:32 Last Admin: 01/07/21 17:16 Dose: 650 mg Documented by: [id number] Buprenorphine/Naloxone (Buprenorphine/Naloxone 8/2 Mg Tab) [facility] [place]: 02/05/21 08:59 Last Admin: 01/08/21 09:08 Dose: 1 tab Documented by: [id number] Admin: 01/07/21 09:07 Dose: 1 tab Documented by: [id number] Admin: 01/06/21 08:50 Dose: 1 tab Documented by: [id number] Dexamethasone Sodium Phosphate (DexamethasonePf 10 Mg/Ml Vial) 10 mg IV NOW ONE Stop: 01/05/21 18:38 Last Admin: 01/05/21 19:48 Dose: Not Given Documented by: [id number] Dexamethasone Sodium Phosphate (DexamethasonePf 10 Mg/Ml Vial) 10 mg IV NOW ONE Stop: 01/05/21 18:42 Last Admin: 01/05/21 19:15 Dose: 10 mg Documented by: [id number] Diphenhydramine HCl (Diphenhydramine 50 Mg/Ml Vial) 25 mg IV NOW STA Stop: 01/05/21 18:39 Last Admin: 01/05/21 23:55 Dose: Not Given Documented by: [id number] Diphenhydramine HCl (Diphenhydramine 50 Mg/Ml Vial) 25 mg IV NOW STA Stop: 01/05/21 18:42 Last Admin: 01/05/21 19:16 Dose: 25 mg Documented by: [id number] Droperidol (Droperidol 5 Mg/2 Ml Vial) 0.625 mg IV ONE STA Stop: 01/05/21 18:39 Last Admin: 01/05/21 23:56 Dose: Not Given Documented by: [id number] Droperidol (Droperidol 5 Mg/2 Ml Vial) 0.625 mg IV ONE STA Stop: 01/05/21 18:42 Last Admin: 01/05/21 19:15 Dose: 0.625 mg Documented by: [id number] Enoxaparin Sodium (Enoxaparin Inj 30 Mg/0.3 Ml Syr) 30 mg SQ QAM [facility] Stop: 02/05/21 08:59 Last Admin: 01/08/21 08:48 Dose: Not Given Documented by: [id number] Admin: 01/07/21 09:07 Dose: Not Given Documented by: [id number] Admin: 01/06/21 08:41 Dose: 30 mg Documented by: [id number] Ceftriaxone Sodium (Rocephin) 2,000 mg in 70 mls @ 140 mls/hr IV NOW STA Stop: 01/05/21 19:06 Last Admin: 01/05/21 19:47 Dose: Not Given Documented by: [id number] Acetaminophen (Ofirmev) 1,000 mg in 100 mls @ 400 mls/hr IV NOW STA Stop: 01/05/21 18:51 Last Admin: 01/05/21 19:47 Dose: Not Given Documented by: [id number] Magnesium Sulfate/Dextrose (Magnesium Sulfate / D5w) 1 gm in 100 mls @ 100 mls/hr IV NOW STA Stop: 01/05/21 19:37 Last Admin: 01/05/21 23:56 Dose: Not Given Documented by: [id number] Sodium Chloride (Nss 1000ml) 1,000 mls @ 999 mls/hr IV .Q1H1M ONE Stop: 01/05/21 19:41 Last Infusion: 01/05/21 20:31 Dose: 0 mls/hr Documented by: [id number] Admin: 01/05/21 19:16 Dose: 999 mls/hr Documented by: [id number] Ceftriaxone Sodium (Rocephin) 2,000 mg in 70 mls @ 140 mls/hr IV NOW STA Stop: 01/05/21 19:10 Last Infusion: 01/05/21 20:31 Dose: 0 mls/hr Documented by: [id number] Admin: 01/05/21 19:14 Dose: 140 mls/hr Documented by: [id number] Magnesium Sulfate/Dextrose (Magnesium Sulfate / D5w) 1 gm in 100 mls @ 100 mls/hr IV NOW STA Stop: 01/05/21 19:41 Last Infusion: 01/05/21 20:30 Dose: 0 mls/hr Documented by: [id number] Admin: 01/05/21 19:16 Dose: 100 mls/hr Documented by: [id number] Vancomycin HCl 2,000 mg/ (Sodium Chloride) 540 mls @ 200 mls/hr IV NOW ONE Stop: 01/05/21 21:31 Last Infusion: 01/06/21 02:05 Dose: 0 mls/hr Documented by: [id number] Admin: 01/05/21 19:47 Dose: 200 mls/hr Documented by: [id number] Potassium Chloride (K Chucho / Wtr) 10 meq in 100 mls @ 100 mls/hr IV Q1H [facility] Stop: 01/05/21 22:29 Last Infusion: 01/06/21 03:50 Dose: 0 mls/hr Documented by: [id number] Admin: 01/06/21 02:45 Dose: 100 mls/hr Documented by: [id number] Infusion: 01/06/21 02:05 Dose: 0 mls/hr Documented by: [id number] Admin: 01/06/21 00:49 Dose: 100 mls/hr Documented by: [id number] Potassium Chloride 40 meq/ (Lactated Ringer's) 1,020 mls @ 100 mls/hr IV .[id number] ONE Stop: 01/06/21 09:44 Last Infusion: 01/06/21 11:12 Dose: 0 mls/hr Documented by: [id number] Admin: 01/06/21 00:49 Dose: 100 mls/hr Documented by: [id number] Ceftriaxone Sodium 2,000 mg/ (Dextrose) 70 mls @ 100 mls/hr IV Q12H [facility]; Protocol Stop: 01/16/21 06:59 Last Infusion: 01/07/21 07:52 Dose: 0 mls/hr Documented by: [id number] Admin: 01/07/21 05:51 Dose: 100 mls/hr Documented by: [id number] Infusion: 01/06/21 19:59 Dose: 0 mls/hr Documented by: [id number] Admin: 01/06/21 19:17 Dose: 100 mls/hr Documented by: [id number] Infusion: 01/06/21 06:53 Dose: 0 mls/hr Documented by: [id number] Admin: 01/06/21 05:59 Dose: 100 mls/hr Documented by: [id number] Vancomycin HCl 1,500 mg/ (Sodium Chloride) 530 mls @ 200 mls/hr IV Q8H [facility] Stop: 01/16/21 03:59 Last Infusion: 01/07/21 15:05 Dose: 0 mls/hr Documented by: [id number] Admin: 01/07/21 12:22 Dose: 200 mls/hr Documented by: [id number] Infusion: 01/07/21 05:48 Dose: 0 mls/hr Documented by: [id number] Admin: 01/07/21 02:54 Dose: 200 mls/hr Documented by: [id number] Infusion: 01/06/21 22:24 Dose: 0 mls/hr Documented by: [id number] Admin: 01/06/21 20:00 Dose: 200 mls/hr Documented by: [id number] Infusion: 01/06/21 13:41 Dose: 0 mls/hr Documented by: [id number] Infusion: 01/06/21 10:05 Dose: 200 mls/hr Documented by: [id number] Infusion: 01/06/21 09:37 Dose: 0 mls/hr Documented by: [id number] Admin: 01/06/21 08:40 Dose: 200 mls/hr Documented by: [id number] Nafcillin Sodium 2,000 mg/ (Dextrose) 108 mls @ 100 mls/hr IV Q4 [facility]; Protocol Stop: 01/17/21 15:59 Last Infusion: 01/08/21 13:09 Dose: 0 mls/hr Documented by: [id number] Admin: 01/08/21 12:03 Dose: 100 mls/hr Documented by: [id number] Infusion: 01/08/21 10:03 Dose: 0 mls/hr Documented by: [id number] Admin: 01/08/21 08:55 Dose: 100 mls/hr Documented by: [id number] Infusion: 01/08/21 06:25 Dose: 0 mls/hr Documented by: [id number] Admin: 01/08/21 05:09 Dose: 100 mls/hr Documented by: [id number] Infusion: 01/08/21 01:50 Dose: 0 mls/hr Documented by: [id number] Admin: 01/08/21 00:23 Dose: 100 mls/hr Documented by: [id number] Infusion: 01/07/21 20:54 Dose: 0 mls/hr Documented by: [id number] Admin: 01/07/21 19:39 Dose: 100 mls/hr Documented by: [id number] Infusion: 01/07/21 17:15 Dose: 0 mls/hr Documented by: [id number] Admin: 01/07/21 16:03 Dose: 100 mls/hr Documented by: [id number] Ibuprofen (Ibuprofen 200 Mg Tab) 200 mg PO Q6H PRN PRN Reason: Mild Pain Stop: 02/04/21 23:32 Last Admin: 01/08/21 09:07 Dose: 200 mg Documented by: [id number] Admin: 01/07/21 16:11 Dose: 200 mg Documented by: [id number] Admin: 01/07/21 06:17 Dose: 200 mg Documented by: [id number] Admin: 01/06/21 20:04 Dose: 200 mg Documented by: [id number] Ketorolac Tromethamine (Ketorolac Tromethamine 15 Mg/Ml Vial) 10 mg IV NOW ONE Stop: 01/05/21 18:42 Last Admin: 01/05/21 19:15 Dose: 10 mg Documented by: [id number] Ketorolac Tromethamine (Ketorolac Tromethamine 15 Mg/Ml Vial) 15 mg IV Q6H PRN PRN Reason: Pain Stop: 01/10/21 23:32 Last Admin: 01/08/21 11:17 Dose: 15 mg Documented by: [id number] Admin: 01/08/21 05:12 Dose: 15 mg Documented by: [id number] Admin: 01/07/21 19:31 Dose: 15 mg Documented by: [id number] Admin: 01/07/21 09:08 Dose: 15 mg Documented by: [id number] Admin: 01/06/21 16:20 Dose: 15 mg Documented by: [id number] Admin: 01/06/21 09:55 Dose: 15 mg Documented by: [id number] Admin: 01/06/21 00:50 Dose: 15 mg Documented by: [id number] Levetiracetam (Levetiracetam 500 Mg Tab) 500 mg PO BID [facility]AK[facility] Stop: 02/04/21 23:32 Last Admin: 01/08/21 16:41 Dose: 500 mg Documented by: [id number] Admin: 01/08/21 09:30 Dose: 500 mg Documented by: [id number] Admin: 01/07/21 19:39 Dose: 500 mg Documented by: [id number] Admin: 01/07/21 09:07 Dose: 500 mg Documented by: [id number] Admin: 01/06/21 20:00 Dose: 500 mg Documented by: [id number] Admin: 01/06/21 08:40 Dose: 500 mg Documented by: [id number] Admin: 01/06/21 00:50 Dose: 500 mg Documented by: [id number] Miscellaneous Information (Vancomycin Consult Active) 1 ea N/A UD PRN PRN Reason: Consult Stop: 02/04/21 18:49 Last Admin: 01/05/21 19:47 Dose: 1 ea Documented by: [id number] Potassium Chloride (Potassium Chloride Crtab 20 Meq Tabcr) 40 meq PO NOW STA Stop: 01/05/21 20:20 Last Admin: 01/05/21 20:31 Dose: 40 meq Documented by: [id number] Venlafaxine HCl (Venlafaxine Hcl Xr 150 Mg Capxr) 150 mg PO QAM [facility] Stop: 02/05/21 08:59 Last Admin: 01/08/21 09:07 Dose: 150 mg Documented by: [id number] Admin: 01/07/21 09:07 Dose: 150 mg Documented by: [id number] Admin: 01/06/21 08:40 Dose: 150 mg Documented by: [id number] Discharge Plan Visit Data Chief Complaint: Abnormal Labs/Diagnostic Testing Stated Complaint: TESTS CAME BACK FOR MENINGITIS ED Provider: Jaleel Molina Discharge Problem: Cerebrospinal fluid abnormality, Headache Patient Disposition: Admitted As Inpatient Discharge Instructions Interventions: ED Discharge Assessment Last Done: 01/05/21 23:12 Discharge Problem: Headache Qualifiers: Headache type: unspecified Headache chronicity pattern: unspecified pattern Intractability: not intractable Qualified Code(s): R51.9 - Headache, unspecified
[2021-01-13] MEDS ORDERED: LR 15ML/HR IV SCH (06:00)
== END 2021-01-08 16:59 | disposition home or self-care (01) | DRG 96 ==
LOC: ED 18:19 → 3W 22:20 → SUATTDRO 22:20 → 3W 23:12